=== PATIENT | male | born 1980 | race Caucasian/White ===

== ENCOUNTER 2018-10-27 14:02 | Emergency (ER) | payer BC ==
--- NOTE | 2018-10-27 14:58 | EDM.PDOC ---
ED HPI GENERAL MEDICAL PROBLEM - General Stated Complaint: ROLLED LEFT ANKLE Time Seen by Provider: 10/27/18 14:30 Source of Information: Reports: Patient, Family History Limitations: Reports: No Limitations - History of Present Illness INITIAL COMMENTS - FREE TEXT/NARRATIVE: 38-year-old male rolled his left ankle within the last 2 hours, while chasing after his kids. He heard a crunching sound, has some swelling and pain with weightbearing. He has sprained his ankle in the past but this feels worse. No other injury. Onset: Sudden Duration: Hour(s): (2 hours) Location: Reports: Lower Extremity, Left Associated Symptoms: Reports: No Other Symptoms - Related Data Allergies Allergy/AdvReac Type Severity Reaction Status Date / Time No Known Allergies Allergy Verified 10/27/18 14:56 Home Meds: Home Meds NK [No Known Home Meds] 10/27/18 [History] Review of Systems - Review of Systems Review Of Systems: See Below Constitutional: Denies: Fever Respiratory: Reports: No Symptoms Cardiovascular: Reports: No Symptoms GI/Abdominal: Reports: No Symptoms Skin: Denies: Bruising Neurological: Denies: Paresthesia ED EXAM, GENERAL - Physical Exam Exam: See Below Exam Limited By: No Limitations General Appearance: Alert, No Apparent Distress Respiratory/Chest: No Respiratory Distress Extremities: Other (Left foot has swelling and tenderness just distal to the medial malleolus on the top of the foot, the base of the fifth metatarsal is not tender. The medial and lateral malleolus themselves are not tender.) Neurological: Alert, Oriented Skin Exam: Warm, Dry, Other (No bruising has developed over the injured area). No: Rash Course - Vital Signs Last Recorded V/S: Last Vital Signs Temp 98.2 F 10/27/18 15:00 Pulse 68 10/27/18 15:00 Resp 16 10/27/18 15:00 BP 124/82 10/27/18 15:00 Pulse Ox 96 10/27/18 15:00 - Orders/Labs/Meds Orders: Active Orders 24 hr Category Date Time Status DME for Discharge [COMM] Stat Oth 10/27/18 15:07 Ordered - Re-Assessments/Exams Free Text/Narrative Re-Assessment/Exam: 10/27/18 14:58 An x-ray of left foot was obtained. 10/27/18 15:22 X-rays negative, four-inch Calvin wrap was applied to the foot and he was fitted with crutches. He will increase activity as tolerated and recheck next week if not improving satisfactorily. Departure - Departure Time of Disposition: 15:39 Disposition: Home, Self-Care 01 Condition: Good Clinical Impression: Sprain of left foot Qualifiers: Encounter type: initial encounter Qualified Code(s): S93.602A - Unspecified sprain of left foot, initial encounter - Discharge Information Instructions: Foot Sprain Referrals: PCP,None [Primary Care Provider] - Forms: ED Department Discharge Care Plan Goals: Wrap foot for support, elevate when able and use crutches over the next several days. Ibuprofen or naproxen will help. Increase activity as tolerated and recheck next week if not improving satisfactorily. Go to [facility] to go tubing. - My Orders Last 24 Hours: My Active Orders 10/27/18 15:07 DME for Discharge [COMM] Stat - Assessment/Plan Last 24 Hours: My Active Orders 10/27/18 15:07 DME for Discharge [COMM] Stat
--- NOTE | 2018-10-27 15:17 | CRLCR ---
HISTORY: Twisting injury to the foot. Pain. COMPARISON: None available. FINDINGS: The left foot is examined with AP, lateral, and oblique views. There is no sign of fracture or dislocation. The soft tissues are normal in appearance without sign of radio-opaque foreign body. No significant degenerative disease is seen. IMPRESSION: Normal left foot. Dictated by Mitesh Villafuerte MD @ Oct 27 2018 3:15PM Signed by Dr. Mitesh Villafuerte @ Oct 27 2018 3:16PM
== END 2018-10-27 15:40 | disposition home or self-care (01) ==
LOC: JP.ED 14:02
DX: S93.602A Unspecified sprain of left foot, initial encounter (principal); X50.1XXA Overexertion from prolonged static or awkward postures, initial encounter
CPT/HCPCS: 73630-LT; 99283-25